=== PATIENT | female | born 1965 | race Caucasian/White ===

== ENCOUNTER → 2018-01-06 12:37 | Outpatient (CLI) | payer BC, SELFPAY ==
--- NOTE | 2018-01-06 12:43 | BI_ITS ---
MAMMOGRAPHY - BILATERAL SCREENING REASON FOR EXAM: Female, 52 years old. Routine annual screening examination. PERTINENT HISTORY: Aunt with breast cancer. Remote right stereotactic breast biopsy. TECHNIQUE: Digital bilateral breast honey (3D mammographic acquisition) in the CC and MLO projections. 2-D mediolateral oblique (MLO) and craniocaudad (CC) views of both breasts were obtained. CAD: Full Field Digital Mammography with Computer Added Detection was performed. COMPARISON: Comparison is made with prior study dated December 03, 2016 and September 30, 2015. FINDINGS: Breast Composition: The breasts are heterogeneously dense, which may obscure small masses. There are no dominant masses or suspicious calcifications. Stable nodular densities in the upper medial portion of the right breast as well as in the deep upper slightly lateral portion of the right breast. No other significant abnormalities are identified. There has been no significant change since the prior study. BI/SCREENING MAMM (CAD), BILAT IMPRESSION: Stable bilateral screening mammogram. Yearly follow-up mammogram recommended. (A) ASSESSMENT CATEGORY: BIRADS Category 2: Benign. A letter regarding these results will be sent to the patient by the facility within 30 days. Approximately 10% of breast cancers are not detected by mammography. A normal mammogram should not delay biopsy of a clinically suspicious abnormality. [id number] Electronically Signed: Carlos Tapia MD at 14:37 EDT Tel [phone], Service support ,
== END ==
PROVIDERS: Family Provider Family Medicine; PCP Family Medicine; Visit Provider Obstetrics & Gynecology
DX: Z12.31 Encounter for screening mammogram for malignant neoplasm of breast (principal)
CPT/HCPCS: 77063; 77067

== ENCOUNTER → 2018-03-10 09:54 | Outpatient (CLI) | payer BC, SELFPAY ==
[2018-03-10 12:37] LABS: Cholesterol 200 mg/dL (200); Glucose 81 mg/dL (74-106); High Density Lipoprotein 75 mg/dL; Triglycerides 83 mg/dL; Very Low Density Lipoprotein 17 mg/dL (5-40)
[2018-03-15 11:22] LABS: Nicotine Blood None Detected (.)
[2018-03-15 11:23] LABS: Cotinine Screen Blood None Detected (.)
--- OUTSIDE RECORDS SUMMARY | 2018-05-05 05:05 | XMS RPT_ITS ---
:1965 Author Organization OHIP Care Team Providers Name Role Phone Vlad Cruz Attending Unavailable Vlad Cruz Primary Care Unavailable Lisa Burton Attending Unavailable Vlad Cruz Primary Care Unavailable PROBLEMS PROBLEMS DATE TYPE CONDITION / CODE ATTENDING STATUS SOURCE 03/17/2018 Unknown Z02.89 - Encounter Vlad Cruz Active [place] for other [facility] examinations / Repository Z02.89(ICD-10) 01/06/2018 Unknown Z12.31 - Encounter [place] Active [place] for screening Lisa dickson [facility] mammogram for Hospital malignant neoplasm Repository of breast / Z12.31(ICD-10) PROCEDURES PROCEDURES No Procedure Records FoundRESULTS RESULTS LIPID PROFILE Collected: 03/10/2018 Status: F Source: [place] 9:57 AM [facility] REPOSITORY TYPE CODE TESTS RESULT OUT OF RANGE REFERENCE UNITS LAB L501.4900 200 mg/dL Normal CHOL 200 Result Comment: <200 mg/dL Desirable 200-240 mg/dL Borderline >240 mg/dL High Risk LAB L501.5000 mg/dL Normal TRIG 83 Result Comment: The drugs N-Acetylcysteine and Metamizole may falsely depress this assay. Serum Triglycerides Reference Interval Normal <150 mg/dL Borderline high 150 - 199 mg/dL High 200 - 499 mg/dL Very High > or = 500 mg/dL LAB L501.6400 mg/dL Normal HDL 75 Result Comment: The drugs N-Acetylcysteine and Metamizole may falsely depress this assay. Reference Range HDL <40 mg/dL Low HDL Cholesterol HDL >or= 60 mg/dL High HDL Cholesterol LAB L501.6500 0-130 mg/dL Normal LDL 108 LAB L501.6600 5-40 mg/dL Normal VLDL 17 Performed By: #### L500.4100, L501.0100 #### [facility] [address] [place], [address] GLUCOSE Collected: 03/10/2018 Status: F Source: [place] 9:57 AM REPOSITORY TYPE CODE TESTS RESULT OUT OF RANGE REFERENCE UNITS LAB L501.0100 74-106 mg/dL Normal GLU 81 Result Comment: Please note revised GLUCOSE reference range effective 2017. Performed By: #### L500.4100, L501.0100 #### [facility] [address] [place], [address] NICOTINE SCREEN BLOOD Collected: 03/10/2018 Status: F Source: [place] 9:57 AM REPOSITORY TYPE CODE TESTS RESULT OUT OF RANGE REFERENCE UNITS LAB L3600.3410 . ng/mL Normal NICOTINE BLD None Detected Result Comment: Nicotine levels greater than 2.0 are consistent with the use of tobacco or tobacco cessation products. LAB L3600.3425 . ng/mL Normal COTININE BLD None Detected Result Comment: Cotinine levels greater than 20.0 are consistent with the use of tobacco or tobacco cessation products. Performed at: - [facility] [id number] Clinical Laboratory Medical Director: Lynda Davison MD, Phone: [phone] Performed By: #### L3600.3400 #### [facility] (refer to report for specific site) refer to report for address and phone number SCREENING MAMM (CAD), Observed: 01/06/2018 Status: F Source: [place] BILAT 12:43 PM [facility]POS[facility] Imaging Services [address] [place] [address] SCREENING MAMM (CAD), BILAT MR#: [id number] Acct: [id number] Name: JUAN AMORORADanilo Aaron Rep #: [id number] : 1965 F 52 From: Carlos Tapia MD PCP: Vlad Cruz MD Status: REG CLI Study: SCREENING MAMM (CAD), BILAT Date of Exam: 01/06/18 Exam# [id number] Ordering Dr: Lisa Donnelly MD MAMMOGRAPHY - BILATERAL SCREENING REASON FOR EXAM: Female, 52 years old. Routine annual screening examination. PERTINENT HISTORY: Aunt with breast cancer. Remote right stereotactic breast biopsy. TECHNIQUE: Digital bilateral breast honey (3D mammographic acquisition) in the CC and MLO projections. 2-D mediolateral oblique (MLO) and craniocaudad (CC) views of both breasts were obtained. CAD: Full Field Digital Mammography with Computer Added Detection was performed. COMPARISON: Comparison is made with prior study dated December 03, 2016 and September 30, 2015. FINDINGS: Breast Composition: The breasts are heterogeneously dense, which may obscure small masses. There are no dominant masses or suspicious calcifications. Stable nodular densities in the upper medial portion of the right breast as well as in the deep upper slightly lateral portion of the right breast. No other significant abnormalities are identified. There has been no significant change since the prior study. BI/SCREENING MAMM (CAD), BILAT IMPRESSION: Stable bilateral screening mammogram. Yearly follow-up mammogram recommended. (A) ASSESSMENT CATEGORY: BIRADS Category 2: Benign. A letter regarding these results will be sent to the patient by the facility within 30 days. Approximately 10% of breast cancers are not detected by mammography. A normal mammogram should not delay biopsy of a clinically suspicious abnormality. [id number] Electronically Signed: Carlos Tapia MD at 14:37 EDT Tel [phone], Service support , CC: Lisachris Burton MD; Vlad Cruz MD Acidizer Helper: Signed PROGRESS Observed: 10/25/2017 Status: COMPLETED Source: [place] 7:[address] [facility] REPOSITORY O ID: [id number] Author: Keke Candelario Service: (none) Author Type: Physician Chemical Reclamation Equipment Operator Type: Progress Notes Filed: 10/25/2017 7:49 AM Note Text: 10/25/2017 Patient presents with: Sore Throat: x 3 days Ear Problem: x 3 days left ear itchy Cough: x 3 days Headache: x 3 days Nausea: x 3 days SUBJECTIVE: This is a 52 year old that is here today for Complaint(s) of sore throat x 3 days. + pain with swallowing. Left ear feels itchy or irritated. + cough, intermittent. Notes CAMPBELL and nausea associated. . 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 ibuprofen (MOTRIN) 600 mg tablet Take 1 tablet by mouth every 6 hours as needed for Pain. fluticasone (FLONASE) 50 mcg/actuation nasal spray Use 1 [place] in each nostril as needed. LORATADINE (CLARITIN ORAL) Take by mouth. PRN No current facility-administered medications for this visit. SOCIAL HISTORY Social History Marital status: Spouse name: Years of education: 15 Number of children: 2 Occupational History Occupation Employer Comment Patient [employer] * [employer]. 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 OBJECTIVE: BP 120/82 Pulse 91 Temp 37.7 ?C (99.8 ?F) Resp 16 Wt 62.5 kg (137 lb 12.8 oz) LMP 08/09/2010 SpO2 98% BMI 20.65 kg/m? APPEARANCE Well appearing, alert, in no acute distress, well-hydrated, well nourished. EYES PERRLA, conjunctiva and sclera normal. EARS External ears normal, canals clear. TMs normal TINO NOSE/SINUS Nares normal. Septum midline. Mucosa normal. No drainage or sinus tenderness. THROAT + posterior oropharyngeal erythema, + exudate. Uvula midline NECK Supple, + TINO cervical adenopathy; HEART RRR with normal S1 and S2 LUNG clear to auscultation, No wheezing, rhonchi, rales. ASSESSMENT/PLAN: 1. Sore throat - ICD9: 462, ICD10: J02.9 - Rapid Strep positive in the office today - antibiotic as written - Discussed supportive care treatment with fluid s, rest and analgesia. - The patient may also use warm salt water gargles, throat lozenges and/or OTC throat spray as needed and nasal saline gtts and suction prn . - Contagious dz precautions discussed- including considered contagious until on antibiotics for 24 hours - The patient should follow up in 3-5 days if symptoms persist or worsen - Call back if drooling, increased temperature, symptoms of dehydration and/or still sick in one week - AMOXICILLIN 500 MG CAPSULE - RAPID STREP TEST B/O The patient indicates understanding of these issues and agrees with the plan. Reviewed red flags and when to seek care sooner. MARILEE Yanez Observed: 10/25/2017 Status: COMPLETED Source: [place] 7:00 AM [facility] REPOSITORY Office Visit (WSTR) ALBERTO AMOR ([id number]) 1965 F EMP Date Time Provider Department 10/25/17 7:00 AM KEKE CANDELARIO) [facility] During your visit today, we recorded the following information about you: Temperature Pulse Respiration Blood pressure 99.8 degrees 91/minute 16/minute 120/82 Weight 62.5 kg Keke Candelario PA-C 10/25/2017 7:49 AM Signed 10/25/2017 Patient presents with: Sore Throat: x 3 days Ear Problem: x 3 days left ear itchy Cough: x 3 days Headache: x 3 days Nausea: x 3 days SUBJECTIVE: This is a 52 year old that is here today for Complaint(s) of sore throat x 3 days. + pain with swallowing. Left ear feels itchy or irritated. + cough, intermittent. Notes CAMPBELL and nausea associated. . 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 ibuprofen (MOTRIN) 600 mg tablet Take 1 tablet by mouth every 6 hours as needed for Pain. fluticasone (FLONASE) 50 mcg/actuation nasal spray Use 1 [place] in each nostril as needed. LORATADINE (CLARITIN ORAL) Take by mouth. PRN No current facility-administered medications for this visit. 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 OBJECTIVE: BP 120/82 Pulse 91 Temp 37.7 ?C (99.8 ?F) Resp 16 Wt 62.5 kg (137 lb 12.8 oz) LMP 08/09/2010 SpO2 98% BMI 20.65 kg/m? APPEARANCE Well appearing, alert, in no acute distress, well- hydrated, well nourished. EYES PERRLA, conjunctiva and sclera normal. EARS External ears normal, canals clear. TMs normal TINO NOSE/SINUS Nares normal. Septum midline. Mucosa normal. No drainage or sinus tenderness. THROAT + posterior oropharyngeal erythema, + exudate. Uvula midline NECK Supple, + TINO cervical adenopathy; HEART RRR with normal S1 and S2 LUNG clear to auscultation, No wheezing, rhonchi, rales. ASSESSMENT/PLAN: 1. Sore throat - ICD9: 462, ICD10: J02.9 - Rapid Strep positive in the office today - antibiotic as written - Discussed supportive care treatment with fluid s, rest and analgesia. - The patient may also use warm salt water gargles, throat lozenges and/or OTC throat spray as needed and nasal saline gtts and suction prn . - Contagious dz precautions discussed- including considered contagious until on antibiotics for 24 hours - The patient should follow up in 3-5 days if symptoms persist or worsen - Call back if drooling, increased temperature, symptoms of dehydration and/or still sick in one week - AMOXICILLIN 500 MG CAPSULE - RAPID STREP TEST B/O The patient indicates understanding of these issues and agrees with the plan. Reviewed red flags and when to seek care sooner. Keke Candelario PA-C Referring Provider: SELF [200] Allergies As of Date: 10/25/2017 Noted Allergy Reaction BIAXIN (CLARITHROMYCIN) 02/29/2008 11 - Vomiting environmental [Other] 01/28/2006 Comments: pollen, animals, =nasal congestion, cough, sneezing, ear infections Date Reviewed: 10/25/2017 Reviewed by: Lizzy Aguilar LPN - Fully Assessed Reason for Visit: Sore Throat [200] Cmt: x 3 days Ear Problem [38] Cmt: x 3 days left ear itchy Cough [28] Cmt: x 3 days Headache [52] Cmt: x 3 days Nausea [70] Cmt: x 3 days Primary Visit Diagnosis:Sore throat [J02.9] Order(s):amoxicillin (POLYMOX, AMOXIL) 500 mg capsuleTake 1 capsule by mouth twice daily for 10 days.Disp: 20 capsuleRfl: 0 RAPID STREP TEST B/O [[id number]] Order #: [id number] Prescriptions as of 10/25/2017 Sig: VALACYCLOVIR 1 GRAM TABLET Take 1 tablet by mouth once d* IBUPROFEN 600 MG TABLET Take 1 tablet by mouth every * FLUTICASONE 50 MCG/ACTUATION * Use 1 [place] in each nostril a* CLARITIN ORAL Take by mouth. 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 Tension Headache [G44.209] Contact Dermatitis and Other Eczema, due to Uns* More... Unspecified symptom associated with female brendon*INVALID FOR* Sebaceous cyst [L72.3] INVALID FOR* Irregular menstrual cycle [N92.6] INVALID FOR*11/06/2013 Furuncle, vulva [N76.4] INVALID FOR* Prescriptions ordered this encounter Disp Refills Start End AMOXICILLIN 500 MG CAPSULE 20 c* 0 10/25/2017 11/04/2017 Route: ORAL Sig: Take 1 capsule by mouth twice daily for 10 days. Encounter Status:Closed by KEKE CANDELARIO PA-C on 10/25/17 ALLERGIES ALLERGIES DATE TYPE / CODE NAME / CODE REACTION SEVERITY SOURCE DRUG CLARITHROMYCIN Vomiting [place] INGREDI/[id number]( Clinic Main SNOMED CT) [place] Repository Miscellaneous OTHER [place] Allergy/[id number]( [facility] Main SNOMED CT) [place] Repository ENCOUNTERS ENCOUNTERS ADMIT/DISCHARGE ACCOUNT ADMITTING ENCOUNTER LOCATION SOURCE NUMBER CLASS 03/10/2018 [id number] [facility] ing:BFHLAB Repository 01/06/2018 [id number] [facility] ing:OPBI Repository 10/25/2017/10/27/19 [id number] Ambulatory [place] [facility] Repository PAYERS PAYERS ENCOUNTER GUARANTOR PAYER SUBSCRIBER SOURCE 03/10/2018 ALBERTO S Primary ALBERTO S [place] [id number] Insurance:ANTHEMPolic EICKBUSHDOB: Community PROSPECT y [place]: [id number] [id number] Repository [address]Hts: (330) Date:[id number] [phone] () [id number], [place] [address]AL: 03/10/2018 Secondary NOT GIVENUNK [place] Insurance:SELF PAY [facility] Number: Effective Repository Date:2018-03-10 01/06/2018 ALBERTO S Primary ALBERTO S [place] [id number] Insurance:ANTHEMPolic EICKBUSHDOB: Community PROSPECT y [place]: [id number] [id number] Repository [address]Rau: (330) Date:[id number] [phone] () [address], [place] [address]IP: 01/06/2018 Secondary NOT GIVENUNK [place] Insurance:SELF PAY [facility] Number: Effective Repository Date:2017-12-15
== END ==
PROVIDERS: Family Provider Family Medicine; PCP Family Medicine; Visit Provider Family Medicine
DX: Z02.89 Encounter for other administrative examinations (principal)
CPT/HCPCS: 36415; 80061; 80323; 82947

== ENCOUNTER → 2019-01-12 | Outpatient (CLI) | payer BC, SELFPAY ==
[2019-01-10 08:31] VITALS: BMI 20.7
--- NOTE | 2019-01-12 09:59 | BI_ITS ---
MAMMOGRAPHY - BILATERAL SCREENING REASON FOR EXAM: Female, 53 years old. Routine annual screening examination. PERTINENT HISTORY: Aunt with breast cancer. Remote right stereotactic breast biopsy. TECHNIQUE: Digital bilateral breast lizandro (3D mammographic acquisition) in the CC and MLO projections. 2-D mediolateral oblique (MLO) and craniocaudad (CC) views of both breasts were obtained. CAD: Full Field Digital Mammography with Computer Added Detection was performed. COMPARISON: Comparison is made with prior study January 06, 2018 and December 03, 2016. FINDINGS: Breast Composition: The breasts are heterogeneously dense, which may obscure small masses. There are no dominant masses or suspicious calcifications. There is a 6.2 mm x 8.3 mm well-defined nodule deep in the slightly upper medial aspect of the right breast. Correlation with ultrasound is recommended. No other significant abnormalities are identified. BI/SCREEN MAMM (CAD) W/LIZANDRO BILAT IMPRESSION: 6.2 mm x 8.3 mm well-defined nodule deep in the slightly upper medial aspect of the right breast as described. Correlation with ultrasound is recommended. ASSESSMENT CATEGORY: BIRADS Category 0: Incomplete. Need additional imaging evaluation. A letter regarding these results will be sent to the patient by the facility within 30 days. Approximately 10% of breast cancers are not detected by mammography. A normal mammogram should not delay biopsy of a clinically suspicious abnormality. [id number] Electronically Signed: Carlos Tapia, at 11:07 EDT , Service support ,
== END | disposition home or self-care (01) ==
LOC: OPBI 09:55
PROVIDERS: Family Provider Family Medicine; PCP Family Medicine
DX: Z12.31 Encounter for screening mammogram for malignant neoplasm of breast (principal)
CPT/HCPCS: 77063; 77067

== ENCOUNTER → 2019-01-18 | Outpatient (CLI) | payer BC, SELFPAY ==
[2019-01-10 08:31] VITALS: BMI 20.7
--- NOTE | 2019-01-18 09:58 | US_ITS ---
STUDY: ULTRASOUND BREAST - RIGHT REASON FOR EXAM: Female, 53 years old. TECHNIQUE: Axial and longitudinal images of the RIGHT breast were performed with a high resolution ultrasound transducer. COMPARISON: Previous mammogram obtained on 01/12/2019. FINDINGS: RIGHT Breast: Serial longitudinal and transverse scans of the right breast were performed utilizing a real-time sector scanner. Particular attention was paid to the superior medial aspect of the right breast. After careful review of the tissue in the right breast no abnormal masses or lesions are identified. Normal breast parenchyma is identified. The focal density noted previously most likely represents focal fibrosis change. US/Breast Limited Unilateral IMPRESSION: No driver license technician didn't abnormality is identified indicating that the density in the right breast represents focal fibrosis change which is normal. ASSESSMENT CATEGORY: FINAL ASSESSMENT: BI-RAD CATEGORY I (NEGATIVE) YEARLY MAMMOGRAPHY RECOMMENDED Electronically Signed: Rachid York, at 7:33 EDT Tel , Service support ,
== END | disposition home or self-care (01) ==
PROVIDERS: Family Provider Family Medicine; PCP Family Medicine; Referring Provider Obstetrics & Gynecology; Visit Provider Obstetrics & Gynecology
DX: R92.2 Inconclusive mammogram (principal)
CPT/HCPCS: 76642

== ENCOUNTER → 2019-01-26 | Outpatient (CLI) | payer BC, SELFPAY ==
[2019-01-20 12:01] VITALS: BMI 20.7
[2019-01-26 16:43] LABS: Cholesterol 183 mg/dL (200); Glucose 81 mg/dL (74-106); High Density Lipoprotein 73 mg/dL; Triglycerides 91 mg/dL; Very Low Density Lipoprotein 18 mg/dL (5-40)
[2019-02-01 21:18] LABS: Nicotine Blood None Detected (.)
[2019-02-01 21:19] LABS: Cotinine Screen Blood None Detected (.)
== END | disposition home or self-care (01) ==
LOC: BFHLAB 14:12
PROVIDERS: Family Provider Family Medicine; PCP Family Medicine; Visit Provider Family Medicine
DX: Z02.89 Encounter for other administrative examinations (principal)
CPT/HCPCS: 36415; 80061; 80323; 82947

== ENCOUNTER → 2019-07-03 13:16 | Outpatient (CLI) | payer BC, SELFPAY ==
[2019-01-20 12:01] VITALS: BMI 20.7
== END ==
PROVIDERS: PCP Family Medicine; Visit Provider Family Medicine
DX: N39.0 Urinary tract infection, site not specified (principal)
CPT/HCPCS: 87086; 87088; 87186

== ENCOUNTER → 2019-07-17 | Outpatient (CLI) | payer BC, SELFPAY ==
[2019-01-20 12:01] VITALS: BMI 20.7
[2019-07-17 15:06] LABS: Color, Urine Yellow (Yellow); Glucose, Dipstick Normal (Normal); Ketone-Dipstick Negative (Negative); Leukocyte Esterase-Dipstick 25 /ul (Negative); Nitrite-Dipstick Negative (Negative); Occult Blood-Urine Negative /ul (Negative); Protein-Dipstick Negative (Negative); Specific Gravity, Urine 1.005 (1.002-1.030); Urine Bilirubin Dipstick Negative (Negative); Urine Clarity Clear (Clear); Urine Urobilinogen Normal (Normal)
== END | disposition home or self-care (01) ==
LOC: MTLAB 12:03
PROVIDERS: PCP Family Medicine; Referring Provider Family Medicine; Visit Provider Family Medicine
DX: N39.0 Urinary tract infection, site not specified (principal)
CPT/HCPCS: 81002; 87086; 87088

== ENCOUNTER → 2020-02-08 | Outpatient (CLI) | payer BC, SELFPAY ==
[2019-01-20 12:01] VITALS: BMI 20.7
[2020-02-08 13:15] LABS: Cholesterol 199 mg/dL (200); Glucose 81 mg/dL (74-106); High Density Lipoprotein 81 mg/dL; Triglycerides 75 mg/dL; Very Low Density Lipoprotein 15 mg/dL (5-40)
== END | disposition home or self-care (01) ==
LOC: BFHLAB 09:16
PROVIDERS: PCP Family Medicine; Visit Provider Family Medicine
DX: Z00.00 Encounter for general adult medical examination without abnormal findings (principal); Z87.891 Personal history of nicotine dependence
CPT/HCPCS: 36415; 80061; 82947

== ENCOUNTER → 2021-02-23 08:43 | Outpatient (CLI) | payer BC, SELFPAY ==
--- NOTE | 2021-02-23 08:47 | BI_ITS ---
MAMMOGRAPHY - UNILATERAL DIAGNOSTIC: RIGHT BREAST REASON FOR EXAM: Female, 55 years old. Calcifications seen on the routine mammogram. PERTINENT HISTORY: Aunt with breast cancer. Remote right stereotactic breast biopsy. TECHNIQUE: Compression magnification views of the right breast were obtained. CAD: Full Field Digital Mammography with Computer Added Detection was performed. COMPARISON: Comparison is made with prior mammogram dated 01/12/2019 and outside examination dated 02/19/2021. FINDINGS: Breast Composition: The breasts are heterogeneously dense, which may obscure small masses. There are no dominant masses or suspicious calcifications. No focal calcifications are seen. No other significant abnormalities are identified. BI/DIAG MAMM W/CAD, UNILAT IMPRESSION: Stable unilateral diagnostic mammogram. One year follow-up mammogram recommended. (A) ASSESSMENT CATEGORY: BIRADS Category 2: Benign. A letter regarding these results will be sent to the patient by the facility within 30 days. Approximately 10% of breast cancers are not detected by mammography. A normal mammogram should not delay biopsy of a clinically suspicious abnormality. Electronically Signed: Carlos Tapia MD at 10:01 EST , Service support ,
== END ==
PROVIDERS: PCP Family Medicine; Referring Provider Obstetrics & Gynecology; Visit Provider Obstetrics & Gynecology
DX: R92.8 Other abnormal and inconclusive findings on diagnostic imaging of breast (principal)
CPT/HCPCS: 77065

== ENCOUNTER → 2024-05-11 | Outpatient (CLI) | payer OTHER, SELFPAY ==
--- NOTE | 2024-05-11 10:35 | BI_ITS ---
PROCEDURE: SCRN MAMM (CAD)W/LIZANDRO BILAT REASON FOR EXAM: F, Age 59 y/o, aunt with breast cancer. History of remote right stereotactic breast biopsy. TECHNIQUE: Bilateral screening digital breast tomosynthesis with 2D and 3D images. Computer aided detection. COMPARISON: Prior exam(s) dating back to comparison is made with prior outside examination dated May 05, 2023.. FINDINGS: The breasts are heterogeneously dense which may obscure small masses. There is a 10.2 mm x 5.6 mm nodule in the deep central medial aspect of the right breast. There is also evidence of a 5.1 mm x 5.6 mm nodule in the deep upper slightly lateral aspect of the right breast. Correlation with ultrasound is recommended. BI/SCRN MAMM (CAD)W/LIZANDRO BILAT IMPRESSION: BI-RADS 0: INCOMPLETE - NEED ADDITIONAL IMAGING EVALUATION. Follow-up code: Ultrasound. The patient will be notified of the results by letter. Reading Location: [place] [address]
== END | disposition home or self-care (01) ==
LOC: OPBI 10:33
PROVIDERS: PCP Family Medicine; Referring Provider Obstetrics & Gynecology; Visit Provider Obstetrics & Gynecology
DX: Z12.31 Encounter for screening mammogram for malignant neoplasm of breast (principal)
CPT/HCPCS: 77063; 77067

== ENCOUNTER → 2024-05-17 | Outpatient (CLI) | payer OTHER, SELFPAY ==
--- NOTE | 2024-05-17 12:23 | US_ITS ---
PROCEDURE: BREAST LIMITED UNILATERAL REASON FOR EXAM: Abnormal screening mammogram. COMPARISON: Comparison is made with prior mammogram dated May 11, 2024. TECHNIQUE: Targeted ultrasound of the upper-outer quadrant of the right breast was performed.. FINDINGS: RIGHT: Ultrasound targeted to the upper-outer quadrant at the right breast. There is a 1.6 cm x 0.7 cm x 0.3 cm hypoechoic nodule with central fatty hilum suggestive of a lymph node. This is seen at the 11 o'clock position of the breast at 6 cm from the nipple. US/Breast Limited Unilateral IMPRESSION: Findings suggestive of a benign lymph node at the 11 o'clock position of the br east at 6 cm from the nipple. BI-RADS 2: BENIGN. RECOMMEND ANNUAL MAMMOGRAPHIC SCREENING. Reading Location: [id number]
== END | disposition home or self-care (01) ==
LOC: OPUS 12:22
PROVIDERS: PCP Family Medicine; Referring Provider Obstetrics & Gynecology; Visit Provider Obstetrics & Gynecology
DX: N63.11 Unspecified lump in the right breast, upper outer quadrant (principal)
CPT/HCPCS: 76642